=== PATIENT | female | born 1980 | race Caucasian/White ===

== ENCOUNTER 2017-02-25 16:26 | Emergency (ER) | payer OTHER ==
[~2017-02-25] VITALS: Ht 160 cm; Wt 63.5 kg
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
[~2017-02-25 16:26] MED LIST: PHENERGAN12.5 MG/SU RC
[2017-02-25] MEDS ORDERED: ZOLOFT (16:32)
[2017-02-25] MEDS ORDERED: NEURONTIN (16:32)
[2017-02-25] MEDS ORDERED: TRAZODONE (16:33)
[2017-02-25] MEDS ORDERED: FAMOTIDINE (16:33)
[2017-02-25 17:52] LABS: AMPHETAMINE POS (NEG); BARBITURATES NEG (NEG); BENZODIAZEPINES NEG (NEG); COCAINE NEG (NEG); MARIJUANA POS (NEG); OPIATES POS (NEG); TRICYCLIC ANTIDEPRESSANTS NEG (NEG); U METHADONE NEG (NEG)
== END 2017-02-25 19:02 | disposition home or self-care (01) ==
LOC: SED 16:26
PROVIDERS: Physician Assistant
DX: K04.7 Periapical abscess without sinus (principal); F19.10 Other psychoactive substance abuse, uncomplicated; F17.200 Nicotine dependence, unspecified, uncomplicated; J44.9 Chronic obstructive pulmonary disease, unspecified; F41.9 Anxiety disorder, unspecified; K21.9 Gastro-esophageal reflux disease without esophagitis; F31.9 Bipolar disorder, unspecified; W50.0XXA Accidental hit or strike by another person, initial encounter; Y92.009 Unspecified place in unspecified non-institutional (private) residence as the place of occurrence of the external cause
CPT/HCPCS: 70486; 80307; 84703; 99284